=== PATIENT | female | born 1995 | race African-American/Black ===

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

== ENCOUNTER 2017-04-22 08:30 | Observation (INO) | payer BC, MEDICAID ==
[~2017-04-22] VITALS: Ht 172.7 cm; Wt 75.7 kg
[2017-04-22] MEDS ORDERED: FERR-63 PO (09:33)
[2017-04-22] MEDS ORDERED: PREN1TAB23 (09:33)
[2017-04-22] MEDS ORDERED: MEPERIDINE HCL/PF 50MG/ML CPJ IM PRN (09:45)
[2017-04-22] MEDS ORDERED: LACTATED RINGERS 1,000 ML IV SCH (09:45)
[2017-04-22 10:01] VITALS: BP 111/67
== END 2017-04-22 11:25 | disposition home or self-care (01) ==
LOC: L&D 08:30
PROVIDERS: ADMIT Acupuncturist; ATTEND Acupuncturist
DX: O46.93 Antepartum hemorrhage, unspecified, third trimester (principal); Z3A.38 38 weeks gestation of pregnancy
CPT/HCPCS: 59871; 88300; 96372; 99281; G0378; J2175; J7120; 88302; 96360